=== PATIENT | male | born 1980 | race Caucasian/White ===

== ENCOUNTER 2018-11-22 22:22 | Emergency (ER) | payer OTHER ==
[~2018-11-22] VITALS: Ht 165.1 cm; Wt 88.6 kg
[2018-11-22 22:52] VITALS: Ht 165.1 cm; Wt 88.6 kg
[2018-11-23] MEDS ORDERED: LORA-441 PO (02:52)
[2018-11-23] MEDS ORDERED: D-ME473S2 PO (02:52)
[2018-11-23 03:00] VITALS: BP 151/88; PULSE 92; RESP 19
--- NOTE | 2018-11-23 07:45 | ERD ---
ER Documentation Chief Complaint Chief Complaint ST, COUGH X 3 DAYS HPI This is a 38-year-old male with no second past medical history presents to the ED complaining of a productive cough with sore throat x3 days. No fevers or chills. Patient is also complaining of left-sided chest pain that migrates to the right side of his chest for the past 1 day. He also reports palpitations and shortness of breath, worse at nighttime and prior to going to bed. He states he believes his symptoms are related to his anxiety. He has not taken anxiety medications. Denies any nausea or vomiting. Denies any diaphoresis. Denies any numbness or tingling. Denies any history of hypertension, diabetes or cholesterol. Denies any significant family history of heart disease. No smoking, no drinking, no drugs. ROS All systems reviewed and are negative except as per history of present illness. Medications Home Meds Active Scripts Dextromethorphan Hb-Promethazine Hcl* (Promethazine DM* Syrup) 473 Ml Syrup, 5 ML PO Q6 PRN for COUGH for 7 Days, ML Prov:ROBBIE MCKAY PA-C 11/23/18 Allergies Allergies: Coded Allergies: No Known Allergy (Unverified , 11/22/18) PMhx/Soc Medical and Surgical Hx: pt denies Medical Hx, pt denies Surgical Hx Hx Alcohol Use: No Hx Substance Use: No Hx Tobacco Use: No Smoking Status: Never smoker Physical Exam Vitals Vital Signs Date Temp Pulse Resp B/P (MAP) Pulse Ox O2 O2 Flow FiO2 Time Delivery Rate 11/23/18 99.6 92 19 151/88 97 Room Air 03:00 (109) 11/22/18 99.1 111 24 141/86 94 22:52 (104) Physical Exam Const: No acute distress Head: Atraumatic Eyes: Normal Conjunctiva ENT: Normal External Ears, Nose and Mouth. + Mild posterior OP erythema. No tonsillar edema or exudates. Uvula midline. Neck: Full range of motion. No meningismus. Resp: Clear to auscultation bilaterally Cardio: Regular rate and rhythm, no murmurs Abd: Soft, non tender, non distended. Normal bowel sounds Skin: No petechiae or rashes Back: No midline or flank tenderness Ext: No cyanosis, or edema Neur: Awake and alert Psych: Normal Mood and Affect Result Diagram: 11/23/18 0143 11/23/18 0143 Results 24 hrs Laboratory Tests Test 11/23/18 01:43 White Blood Count 8.8 10^3/ul Red Blood Count 4.97 10^6/ul Hemoglobin 15.1 g/dl Hematocrit 45.1 % Mean Corpuscular Volume 90.7 fl Mean Corpuscular Hemoglobin 30.4 pg Mean Corpuscular Hemoglobin Concent 33.5 g/dl Red Cell Distribution Width 12.3 % Platelet Count 169 10^3/UL Mean Platelet Volume 10.1 fl Immature Granulocytes % 0.300 % Neutrophils % 60.0 % Lymphocytes % 23.1 % Monocytes % 11.0 % Eosinophils % 5.0 % Basophils % 0.6 % Nucleated Red Blood Cells % 0.0 /100WBC Immature Granulocytes # 0.030 10^3/ul Neutrophils # 5.3 10^3/ul Lymphocytes # 2.0 10^3/ul Monocytes # 1.0 10^3/ul Eosinophils # 0.4 10^3/ul Basophils # 0.1 10^3/ul Nucleated Red Blood Cells # 0.0 10^3/ul D-Dimer 328.51 ng/ml D-Dimer Comment Sodium Level 140 mmol/L Potassium Level 3.7 mmol/L Chloride Level 95 mmol/L Carbon Dioxide Level 30 mmol/L Anion Gap 15 Blood Urea Nitrogen 3 mg/dl Creatinine 0.74 mg/dl Est Glomerular Filtrat Rate mL/min > 60 mL/min Glucose Level 113 mg/dl Calcium Level 9.2 mg/dl Troponin I < 0.012 ng/ml B-Type Natriuretic Peptide < 11 PG/ML Procedures/[facility]M LABS & DIAGNOSTIC IMAGING: CBC: no e/o of systemic infection or severe anemia BMP: no e/o severe acidosis, alkalosis, renal failure, diabetic ketoacidosis Troponin: neg BNP: neg D-dimer: normal PROCEDURE: Single view chest. CLINICAL INDICATION: Chest pain TECHNIQUE: Single view of the chest was obtained COMPARISON: None FINDINGS: There is no airspace consolidation or focal infiltrate. No pleural effusion or pneumothorax. Cardiac silhouette and mediastinal contours are unremarkable. Pul monary vasculature appears normal. Regional bones are grossly unremarkable. IMPRESSION: No evidence of active cardiopulmonary disease. PROCEDURES: 12-lead EKG interpretation as interpeted by Dr. Cook Normal Sinus Rhythm with ventricular rate of 100 beats per minute Normal axis Normal intervals No acute ST or T wave changes suggestive of acute ischemia or STEMI. MEDICAL DECISION MAKING: This is a 38-year-old male who presents with cough and atypical chest pain. His EKG here is unremarkable. Chest x-ray is normal. His cardiac work-up including CBC, BMP, troponin, BMP and d-dimer are all normal. I have low suspicion for PE/DVT, WA, ACS, CVA or any other emergent process. Patient's cough is likely viral etiology. He is mildly tachycardic here, remaining vital signs are unremarkable. This is likely related to his anxiety. Patient will be discharged home with supportive medications and primary care follow-up sometime this week. Strict return precautions were discussed. PRESCRIPTIONS: Promethazine DM SPECIALIST FOLLOW UP RECOMMENDED: None Patient has been advised to follow up with primary care in 1-2 days. Departure Diagnosis: Primary Impression: URI (upper respiratory infection) URI type: unspecified URI Qualified Codes: J06.9 - Acute upper respiratory infection, unspecified Additional Impression: Anxiety Condition: Stable Patient Instructions: Preventing Common Respiratory Infections, Anxiety Reaction Additional Instructions: Call your primary care doctor TOMORROW for an appointment during the next 2-4 days and bring all the information and medications prescribed. If the symptoms get worse and your provider is unavailable, return to the [facility] immediately. ROBBIE MCKAY PA-C Nov 23, 2018 07:44
== END 2018-11-23 03:02 | disposition home or self-care (01) ==
LOC: FTE 22:22
DX: J06.9 Acute upper respiratory infection, unspecified (principal); F41.9 Anxiety disorder, unspecified; R00.2 Palpitations
CPT/HCPCS: 36415; 71045; 80048; 83880; 84484; 85025; 85378; 93005; Z7502